=== PATIENT | female | born 1985 | race Caucasian/White ===

== ENCOUNTER 2017-03-14 15:22 | Emergency (ER) | payer OTHER ==
[~2017-03-14] VITALS: Ht 157.5 cm; Wt 104.0 kg
[2017-03-14 15:37] VITALS: BP 138/79; PULSE 94; RESP 22; TEMP 97.6; O2SAT 98
[2017-03-14] MEDS ORDERED: EPIP0.3I IM (16:10)
[2017-03-14] MEDS ORDERED: ZITHTAB PO (16:10)
--- NOTE | 2017-03-14 16:11 | PD ---
HPI . Pruritic rash Chief Complaint: Allergic/Adverse Reaction Time Seen by Provider: 16:03 Travel History International Travel<30 days: No Contact w/Intl Traveler<30days: No Traveled to known affect area: No History of Present Illness HPI This patient presents to us via [facility] with an allergic reaction. She took her first dose of amoxicillin for otitis media at 12:30 and developed a pruritic rash at 2:30. The patient was treated by [facility] with Benadryl, Solu-Medrol and Zofran. Her symptoms are starting to improve. She does state that she was having swelling of her oropharynx and difficulty breathing. Symptoms were moderate to severe. The patient reports that she was placed on amoxicillin because of otitis media. PFSH Past Medical History Diabetes: Yes Patient Takes Glucophage: No Tetanus Vaccination: < 5 Years Influenza Vaccination: No ?: Not LMP: 03/06/17 Tubal Ligation: Yes Past Surgical History Tonsillectomy: Yes Social History Alcohol Use: No Tobacco Use: Yes (1 ppd) Substance Use: No Allergies-Medications (Allergen,Severity, Reaction): Coded Allergies: amoxicillin (Verified Allergy, Unknown, swelling, 03/14/17) rash,swelling Reported Meds & Prescriptions Reported Meds & Active Scripts Active Zithromax Z-Jeff (Azithromycin) 250 Mg Dspk 250 Mg PO DIRECTED 500 MG (2 tabs) day 1, then 1 tab days 2-5. Epipen 2-Jeff Inj (Epinephrine) 0.3 Mg/0.3 Ml Pfpen 0.3 Mg IM ONCE PRN Review of Systems Except as stated in HPI: all other systems reviewed are Neg Physical Exam Narrative GENERAL: Awake and alert and in no acute distress. SKIN: Diffuse red rash. HEAD: Normocephalic/atraumatic. EYES: Pupils are equal. Extraocular movements are intact. ENT: Both TMs are erythematous. Oropharynx really has no edema. No lip edema. NECK: Normal range of motion. CARDIOVASCULAR: Regular rate and rhythm. RESPIRATORY: Nonlabored respirations. Lungs sound clear with good air movement throughout. MUSCULOSKELETAL: Atraumatic. NEUROLOGICAL: Nonfocal. PSYCHIATRIC: Appropriate mood and affect. Data Data Last Documented VS Vital Signs Date Time Temp Pulse Resp B/P (MAP) Pulse Ox O2 Delivery O2 Flow Rate FiO2 03/14/17 15:37 97.6 94 22 138/79 (98) 98 MDM Medical Decision Making Medical Screen Exam Complete: Yes Emergency Medical Condition: Yes Differential Diagnosis The differential diagnosis of the skin rash includes but is not limited to allergic urticaria, scabies, insect bites, contact dermatitis Narrative Course This patient presents with an acute allergic reaction to amoxicillin. She is improving following Benadryl, Solu-Medrol and Zofran. She will be observed here for. Of time. Her antibiotic needs to be changed. I will place her on Zithromax. This patient has continued to rest comfortably. Her symptoms continued to improve. She will be discharged home. I have written her prescription for an EpiPen. I have instructed her to keep Benadryl at home. I have told her that she should call 911 if she has to use the EpiPen. Diagnosis Primary Impression: Allergic reaction Qualified Codes: T78.40XA - Allergy, unspecified, initial encounter Additional Impression: Otitis media Qualified Codes: H66.003 - Acute suppurative otitis media without spontaneous rupture of ear drum, bilateral Patient Instructions: General Allergic Reaction (ED), General Instructions Additional Instructions: Benadryl 2 every 4 hours until the rash has completely resolved. Avoid penicillin at a biopsy in the future. Zithromax instead of amoxicillin for your ear infection. Med/Other Pt SpecificInfo: Prescription(s) given Scripts Azithromycin (Zithromax Z-Jeff) 250 Mg Dspk 250 MG PO DIRECTED for Infection, #1 DSPK 0 Refills 500 MG (2 tabs) day 1, then 1 tab days 2-5. Prov: Beena Webb MD 03/14/17 Epinephrine Inj (Epipen 2-Jeff Inj) 0.3 Mg/0.3 Ml Pfpen 0.3 MG IM ONCE Y for ALLERGIC REACTION, #1 PACK 0 Refills Prov: Beena Webb MD 03/14/17 Disposition: DISCHARGE HOME Condition: Stable Beena Webb MD Mar 14, 2017 16:11
== END 2017-03-14 17:28 | disposition home or self-care (01) ==
LOC: NEPD 15:22
DX: L29.9 Pruritus, unspecified (principal); R22.1 Localized swelling, mass and lump, neck; R06.89 Other abnormalities of breathing; T36.0X5A Adverse effect of penicillins, initial encounter; H66.003 Acute suppurative otitis media without spontaneous rupture of ear drum, bilateral; E11.9 Type 2 diabetes mellitus without complications; F17.200 Nicotine dependence, unspecified, uncomplicated
CPT/HCPCS: 99284